=== PATIENT | male | born 1950 | race Caucasian/White ===

== ENCOUNTER 2021-07-07 07:44 | Inpatient (IN) | payer MEDICARE, MEDICAID ==
[2021-07-07] VITALS (17 sets, daily range): BP systolic 115–197; BP diastolic 56–96; PULSE 50–82; TEMP 96.8–97.6
[~2021-07-07] VITALS: Ht 185.4 cm; Wt 77.2 kg
[2021-07-07] MEDS ORDERED: TYLENOL 500MG500 MG PO (10:35)
[2021-07-07] MEDS ORDERED: NORVASC 10MG10 MG PO (10:36)
[2021-07-07] MEDS ORDERED: COREG 3.123.125 MG/T PO (10:37)
[2021-07-07] MEDS ORDERED: LIPITOR 40MG TA40 MG PO (10:37)
[2021-07-07] MEDS ORDERED: PLAVIX 75MG TAB75 MG PO (10:37)
[2021-07-07] MEDS ORDERED: PRINZIDE 12.5 M1 TAB PO (10:38)
[2021-07-07] MEDS ORDERED: RANEXA 500MG T500 MG PO (10:39)
[2021-07-07] MEDS ORDERED: NITROSTAT0.4 MG/TAB SL (10:39)
--- NOTE | 2021-07-07 11:06 | NUR ---
CRITICAL TROPONIN REPORTED TO DR. MCCLAIN, NO NEW ORDERS AT THIS TIME
[2021-07-07 11:15] LABS: BASO % 0.5 % (0.0-2.0); EOS # 0.1 K/mm3 (0.0-0.7); EOS % 2.4 % (0.0-4.0); GRAN # 3.5 K/mm3 (1.4-6.5); GRAN % 60.8 % (42.2-75.2); HEMOGLOBIN 13.7 g/dl (13.5-18.0); LYMPH # 1.6 K/mm3 (1.2-3.4); MEAN CELL VOLUME 87 fl (80.0-100.0); MEAN CORPUSCULAR HEMOGLOBIN 29 pg (27-31); MEAN CORPUSCULAR HGB CONC 33 g/dl (33.0-37.0); MEAN PLATELET VOLUME 11.4 fl (7.4-10.4); MONO # 0.5 K/mm3 (0.1-0.6); PLATELET COUNT 227 K/mm3 (130-400); RED BLOOD COUNT 4.72 M/mm3 (4.20-5.60); REDCELL DISTRIBUTION WIDTH-CV 14.6 % (11.5-14.5)
[2021-07-07 11:23] LABS: INR 1.1 (0.8-3.0); PROTHROMBIN TIME 12.7 SECONDS (9.7-12.8)
[2021-07-07 11:26] LABS: PARTIAL THROMBOPLASTIN TIME 33.2 SECONDS (26.0-37.0)
[2021-07-07 11:37] LABS: ALBUMIN 3.3 gm/dL (3.4-4.8); BILIRUBIN,TOTAL 1.5 mg/dL (0.2-1.2); CALCIUM 8.6 mg/dL (8.4-10.2); CREATININE, serum 0.76 mg/dL (0.72-1.25); MAGNESIUM 1.6 mg/dL (1.6-2.6); TOTAL PROTEIN 6.3 gm/dL (6.2-8.1)
[2021-07-07 11:45] LABS: TROPONIN-I 0.079 ng/mL (0.00-0.033)
--- NOTE | 2021-07-07 13:01 | NUR ---
PT REQUESTED TO HAVE WALLET LOCKED UP. CONTENTS OF WALLET REVIEWED WITH PT. PT VERIFIED CONTENTS AND SIGNED THE ENVELOPE WITH THE CONTENTS. PT LABELS APPLIED. DYNAMOMETER TESTER TOOK WALLET TO SAFE. PT RESTING IN ROOM. VITAL SIGNS WITHIN NORMAL RANGE AFTER RECIEVING MEDICATIONS. REMAINS NPO, EXCEPT RECIEVING ORAL MEDICATIONS. EDUCATED ON MEDICATIONS. NO CONCERNS AT THIS TIME.
--- NOTE | 2021-07-07 13:21 | NUR ---
PT GAVE PERMISSION FOR MARGARITO CUEVAS TO RECIEVE INFORMATION REGARDING THE PT'S CARE. PT REQUESTED THAT I CALL MARGARITO CUEVAS AND LET HER KNOW THAT THE PT WAS IN THE HOSPITAL AND SHARE HIS PASSWORD WITH HER. I GOT IN CONTACT WITH MARGARITO CUEVAS AND SPOKE WITH HER OVER THE PHONE. I NOTIFIED HER THAT THE PT WAS AT [facility] AND UPDATED HER WITH THE ONGOING PT CARE. NOTIFIED THE PT AFTER THE PHONE CALL TO LET HIM KNOW I WAS IN CONTACT WITH HIS FAMILY MEMBER.
--- NOTE | 2021-07-07 14:30 | NUR ---
PT TAKEN OFF UNIT FOR CARDIAC CATH PROCEDURE. PLAVIX HELD UNTIL POST PROCEDURE.
--- NOTE | 2021-07-07 15:06 | NUR ---
SEE MERGE FOR ALL MEDICATION ADMINISTRATION TIMES/DOSAGE AND INTRA/POST PROCEDURE SEDATION ASSESSMENTS.
--- NOTE | 2021-07-07 16:08 | NUR ---
ASSESSED CATH SITE AT BEDSIDE WITH TOUR DRIVER. SITE SOFT TO TOUCH. NO BRUISING OR HEMATOMA PRESENT. PT ALERT AND ORIENTED. ATTACHED TO POST-OP VITALS, VITALS STABLE. PT HAS MILD TENDERNESS AT SITE WHEN PALPATED.
--- NOTE | 2021-07-07 17:41 | NUR ---
PT RESTING FLAT IN BED. Q15 AND Q30 VITALS ARE STABLE. RIGHT FEMORAL CATHETER INSERT SITE REMAINS SOFT. NO DISCOLORATION OR SIGNS OF BLEEDING. PEDAL PULSES REMAIN 1+. MILD TENDERNESS AT THE SITE. PT EATING FINGER FOODS WHILE REMAINING FLAT. EDUCATED PT ON MEDICATIONS AND SITE CARE. EDUCATED PT TO KEEP LEG FLAT AND STRAIGHT WITH LITTLE MOVEMENT AND TO REMAIN FLAT. PT VERBALIZES UNDERSTANDING. BED IS LOW AND IN LOCKED POSITION WITH BED ALARM ON. WILL CONTINUE TO MONITOR THE SITE AND VITAL SIGNS FRQUENTLY. PT REMAINS ALERT AND ORIENTED X 4. NO CONCERNS AT THIS TIME.
--- NOTE | 2021-07-07 18:16 | NUR ---
PA NOTIFIED OF INC BP, HYDRALAZINE ORDERED I
--- NOTE | 2021-07-07 18:32 | NUR ---
ADMINISTERED PRN IV HYDRALAZINE FOR ELEVATED BLOOD PRESSURE. BP HAS CONSEQUTIVELY REMAINED IN 190/70'S. WILL RE-CHECK VITAL SIGNS.
[2021-07-08] VITALS (7 sets, daily range): BP systolic 114–166; BP diastolic 47–80; PULSE 59–85; TEMP 97.7–98.5
--- NOTE | 2021-07-08 00:51 | NUR ---
PATIENT DOING WELL TONIGHT. ALERT AND ORIENTED. R FEMORAL CATH SITE CDI, SOFT AND NO EVIDENCE OF HEMATOMA, NO BRUISING NOTED. SITE IS TENDER ON PALPATION. BP HAS BEEN ELEVATED, PRN DOSE OF HYDRALAZINE GIVEN WITH NO CHANGE AND CALL PLACED TO ABELARDO MORRELL AND ORDER FOR ANOTHER DOSE GIVEN. LAST BP CHECK 160/80. IVF INFUSING TO L AC. PATIENT USING URINAL IN BED. REPORTS SOME DIFFICULTY INITIATING STREAM. SPEECH IS GARBLED BUT THIS IS BASELINE PER SHIFT REPORT. FLAT TIME COMPLETE. NO FURTHER NEEDS AT THIS TIME.
[2021-07-08 06:36] LABS: POTASSIUM 3.8 mmol/L (3.5-4.5)
[2021-07-08 06:52] LABS: TROPONIN-I 0.104 ng/mL (0.00-0.033)
--- NOTE | 2021-07-08 07:50 | NUR ---
PT VERY DROWSY, ANSWERED ORIENTATION QUESTIONS APPROPRIATELY, PT GRIMACING WITH PALPATION OF ABD, BUT DENIES PAIN WHEN QUESTIONED, PT GROIN SITE ASSESSED, SOFT TO PALPATION, PT SAYING "OW" WITH PALPATION OF GROIN SITE, PT CATHOLIC PRIEST EQUAL, MEDICATIONS GIVEN, PT INDEPENDENT IN STANDING UP AND USING THE URINAL. NO OTHER NEEDS
--- NOTE | 2021-07-08 08:00 | NUR ---
DR. MCCLAIN NOTIFIED OF CRITICAL TROPONIN, NO NEW ORDERS
[2021-07-08] MEDS ORDERED: LIPITOR 80MG80 MG PO ×2 (10:45)
[2021-07-08] MEDS ORDERED: ASPIRIN E.C. 8181 MG PO (10:45)
[2021-07-08] MEDS ORDERED: PLAVIX 75MG TAB75 MG PO (10:49)
[2021-07-08] MEDS ORDERED: NITROSTAT0.4 MG/TAB SL (10:50)
[2021-07-08] MEDS ORDERED: RANEXA 500MG T500 MG PO (10:50)
[2021-07-08] MEDS ORDERED: COREG 3.123.125 MG/T PO (10:50)
[2021-07-08] MEDS ORDERED: NORVASC 10MG10 MG PO (10:51)
[2021-07-08] MEDS ORDERED: PRINZIDE 12.5 M1 TAB PO (10:52)
--- NOTE | 2021-07-08 11:00 | NUR ---
CONTACTED PT LISTED CONTACT ABOUT DISCHARGE, SHE STATED PT IS CURRENTLY LIVING IN HIS CAR AND DOES NOT HAVE ACCESS TO HIS MEDICATIONS OR GETTING MEDICATIONS, DR. MCCLAIN NOTIFIED AND SOCIAL WORK NOTIFIED, DC ORDERS CANCELED FOR POSSIBLE PLACEMENT.
--- NOTE | 2021-07-08 11:29 | NUR ---
Initial visit; Patient thanked Rural Carrier Associate for looking in on him and wishing him well.
--- NOTE | 2021-07-08 12:48 | NUR ---
JONO met with the pt, Dr. Deng present to complete intake and go over living situation. The pt reports living in his van in [place]. The pt next of kin is his mother in law, Chaya Toney [phone] and he gets his medications from [facility] and no PCP. Doctor Deng has recommendation for placement, pending psych eval. Following DC: placment vs home.
--- NOTE | 2021-07-08 13:27 | NUR ---
ATTEMPTED TO CALL CONSULT TO DR VARELA, SHE STATED SHE WOULD ONLY SEE THE PT IF THEY REFUSED PLACEMENT. WHEN PT ASKED ABOUT POTENTIAL PLACEMENT HE FROWNED BUT THEN SAID "YEAH". CONFIRMED AGAIN IF HE WOULD BE OPEN TO PLACEMENT IF NECESSARY FOR A SAFE ENVIRONMENT AND PT SAID "YEAH I WOULD". DR. MCCLAIN NOTIFIED, CONSULT CANCELED TO DR. VARELA AT THIS TIME.
--- NOTE | 2021-07-08 14:58 | NUR ---
Dr. Deng would like to find pt a SNF placement. to send referrals to [facility] [place]. Pt lives in [place].
--- NOTE | 2021-07-08 17:18 | NUR ---
PT PLEASANT, AOX4, DROWSY MOST OF SHIFT, PT SHOWERED TODAY, INDEPENDENT IN ROOM, FEMORAL SITE SOFT TO PAL P ATION, NO OTHER NEEDS
[2021-07-09 04:32] VITALS: BP 137/60; PULSE 56; TEMP 98
--- NOTE | 2021-07-09 04:55 | NUR ---
NO NEW ISSUES NOTED OR REPORTED BY PATIENT THIS SHIFT. PATIENT RESTED QUIETLY IN BED THROUGHOUT THE NIGHT. NO S/S OF DISTRESS
[2021-07-09 07:39] VITALS: BP 139/60; PULSE 58; TEMP 98.4
--- NOTE | 2021-07-09 08:41 | NUR ---
Pt assessment complete. Pt is drowsy upon entry, but arouses to voice. He is oriented. Breathing is even and unlabored on RA. Pt denies SOB. Currently denies any pain. No needs at this time. POC discussed with patient who verbalizes understanding. Call light within reach.
[2021-07-09 11:32] VITALS: BP 127/53; PULSE 57; TEMP 97.6
--- NOTE | 2021-07-09 12:43 | NUR ---
PT is monitoring Pt.
[2021-07-09 16:11] VITALS: BP 127/54; PULSE 59; TEMP 98.3
--- NOTE | 2021-07-09 19:14 | NUR ---
Pt slept through the day, had no complaints of pain or concerns. Resting in bed at this time. Call light within reach.
[2021-07-09 20:08] VITALS: BP 121/50; PULSE 49; TEMP 97.9
[2021-07-09 23:49] VITALS: BP 124/52; PULSE 54; TEMP 98.5
[2021-07-10 04:11] VITALS: BP 149/53; PULSE 48; TEMP 98.5
--- NOTE | 2021-07-10 06:09 | NUR ---
NO NEW ISSUES NOTED OR REPORTED BY PATIENT THROUGHOUT THE NIGHT. DENIES PAIN OR DISCOMFORT. CALL LIGHT WITHIN REACH.
[2021-07-10 06:29] LABS: BASO % 0.5 % (0.0-2.0); EOS # 0.5 K/mm3 (0.0-0.7); EOS % 7.9 % (0.0-4.0); GRAN # 2.9 K/mm3 (1.4-6.5); GRAN % 50.7 % (42.2-75.2); LYMPH # 1.6 K/mm3 (1.2-3.4); LYMPH % 28.6 % (20.0-51.0); MEAN CELL VOLUME 87 fl (80.0-100.0); MEAN CORPUSCULAR HEMOGLOBIN 29 pg (27-31); MEAN CORPUSCULAR HGB CONC 33 g/dl (33.0-37.0); MEAN PLATELET VOLUME 11.9 fl (7.4-10.4); MONO # 0.7 K/mm3 (0.1-0.6); PLATELET COUNT 212 K/mm3 (130-400); RED BLOOD COUNT 4.49 M/mm3 (4.20-5.60); REDCELL DISTRIBUTION WIDTH-CV 14.7 % (11.5-14.5)
[2021-07-10 06:47] LABS: CALCIUM 8.1 mg/dL (8.4-10.2); CREATININE, serum 1.03 mg/dL (0.72-1.25); POTASSIUM 3.4 mmol/L (3.5-4.5)
[2021-07-10 08:00] VITALS: BP 156/62; PULSE 50; TEMP 97.7
--- NOTE | 2021-07-10 09:33 | NUR ---
Scheduled medications givne. Shift assessment performed. VSS. Patient A&Ox2. Patient denies any pain, discomfort, SOA, or further needs at this time. PT working with patient. Call light in reach. Fall percautions in place.
[2021-07-10 11:10] VITALS: BP 132/55; PULSE 51; TEMP 98.7
--- NOTE | 2021-07-10 11:12 | NUR ---
hair worker met with patient to discuss discharge plan. Collaborated with patient's RN who states that the patient way stating that he did not need post acute rehab but later agreed to it. This SW asked patient if he was agreeable to go to a SNF. Patient verbalizes his agreement and states he would prefer to go somewhere in [place] as he is worried about his truck. Offered to contact the [employer] to check on it for him. Patient declines stating it is at [facility]
--- NOTE | 2021-07-10 11:30 | NUR ---
Bisi, at [facility], reports that they are not in-network with the patient's insurance: [employer].
--- NOTE | 2021-07-10 11:41 | NUR ---
SW faxed updates to [facility] and [facility]. Awaiting screens.
--- NOTE | 2021-07-10 14:31 | NUR ---
JONO followed up with Yolande about referral. Yolande reports that the team at [facility] would like a speech eval to determine if the patient is able to make his own decisions. PORSCHE Lucas contacted and Speech has been ordered.
--- NOTE | 2021-07-10 15:57 | NUR ---
Patient has had an ok day. VSS. Patient is partially oriented. Denies any pain, discomfort, SOA, or further needs at this time. Call light in reach. Fall percautions in place.
[2021-07-10 16:12] VITALS: BP 141/53; PULSE 55; TEMP 98.4
[2021-07-10 19:54] VITALS: BP 143/65; PULSE 51; TEMP 97.9
[2021-07-10 23:28] VITALS: BP 141/63; PULSE 52; TEMP 98.5
[2021-07-11 04:45] VITALS: BP 135/64; PULSE 42; TEMP 97.6
--- NOTE | 2021-07-11 06:00 | NUR ---
ASSESSMENT COMPLETE FOR THIS SHIFT. PT RESTING IN BED WATCHING TV. PT DENIED PAIN, PALPITATIONS, SOB, N,V,D OR DIZZINESS. PT'S NEURO CHECKS STABLE. PT'S HR CONTINUED TO DRIP INTO THE LOW 40'S AND RECOVER BACK TO THE 50'S, WHEN PT WAS ASLEEP, NON-SYMPTOMATIC. HOSPITALIST CALLED. ORDERED TO CONTINUE TO MONITOR. PT'S HR STARTED TO DRIP INTO THE 30'S AND RECOVER TO THE 40'S, WHILE PT WAS STILL ASLEEP, PT STILL NON-SYMPTOMATIC. HOSPITALIST CALLED. ORDERED TO CONTINUE MONITORING AND EKG ORDERED. PT EXPRESSED NO OTHER NEEDS AT THIS TIME. CALL LIGHT WITHIN REACH.
[2021-07-11 06:30] LABS: BASO % 0.4 % (0.0-2.0); EOS # 0.5 K/mm3 (0.0-0.7); EOS % 8.9 % (0.0-4.0); GRAN # 2.9 K/mm3 (1.4-6.5); GRAN % 53.7 % (42.2-75.2); HEMATOCRIT 39.6 % (42.0-52.0); HEMOGLOBIN 13.1 g/dl (13.5-18.0); LYMPH # 1.4 K/mm3 (1.2-3.4); LYMPH % 26.8 % (20.0-51.0); MEAN CELL VOLUME 89 fl (80.0-100.0); MEAN CORPUSCULAR HEMOGLOBIN 29 pg (27-31); MEAN CORPUSCULAR HGB CONC 33 g/dl (33.0-37.0); MEAN PLATELET VOLUME 11.8 fl (7.4-10.4); MONO # 0.5 K/mm3 (0.1-0.6); PLATELET COUNT 209 K/mm3 (130-400); RED BLOOD COUNT 4.46 M/mm3 (4.20-5.60); REDCELL DISTRIBUTION WIDTH-CV 14.7 % (11.5-14.5)
[2021-07-11 06:44] LABS: CALCIUM 8.3 mg/dL (8.4-10.2); CREATININE, serum 0.83 mg/dL (0.72-1.25); POTASSIUM 3.5 mmol/L (3.5-4.5)
[2021-07-11 08:14] VITALS: BP 161/59; PULSE 49; TEMP 97.7
--- NOTE | 2021-07-11 09:55 | NUR ---
Scheduled medications given. Shift assessment performed. Patient denies any pain, but states he generally does not feel well. Denies chest pain or SOB. Neuro check WNL. Patient is bradycardiac with an elevated blood pressure. All other VSS. Patient is alert, but only paritially oriented. Patient denies any further pain, discomfort, SOA, or needs at this time. Call light in reach. Fall percautions in place.
[2021-07-11 12:32] VITALS: BP 148/60; PULSE 56; TEMP 97.7
--- NOTE | 2021-07-11 13:05 | NUR ---
SW faxed ST's eval and updates to [facility] and [facility].
[2021-07-11 15:50] VITALS: BP 145/59; PULSE 53; TEMP 97.7
--- NOTE | 2021-07-11 18:29 | NUR ---
Patient has had an ok day. Patient continues to have heart rates in the 50's. PM Coreg held per parameters. All other VSS. Patient Alert, but not fully oriented. Patient denies any pain, discomfort, SOA, or further needs at this time. Call light in reach. Fall percautions in place.
[2021-07-11 19:18] VITALS: BP 148/62; PULSE 55; TEMP 97.8
--- NOTE | 2021-07-11 20:45 | NUR ---
Initial shift assessment done- alert/oriented x4, no requests, denies chest pain/SOB, Tele on; celestine at 55/min,Using call light to call for assistance to bathroom, gait jerky at times, speech slurred slightly
[2021-07-11 23:49] VITALS: BP 146/52; PULSE 60; TEMP 98.6
[2021-07-12 03:36] VITALS: BP 107/90; PULSE 43; TEMP 97.7
--- NOTE | 2021-07-12 05:39 | NUR ---
Has been sleeping well all night- no chest pain- VSS
[2021-07-12 06:46] LABS: BASO % 0.5 % (0.0-2.0); EOS # 0.6 K/mm3 (0.0-0.7); EOS % 10.9 % (0.0-4.0); GRAN # 2.7 K/mm3 (1.4-6.5); HEMATOCRIT 40.4 % (42.0-52.0); HEMOGLOBIN 13.3 g/dl (13.5-18.0); LYMPH # 1.7 K/mm3 (1.2-3.4); LYMPH % 29.8 % (20.0-51.0); MEAN CELL VOLUME 90 fl (80.0-100.0); MEAN CORPUSCULAR HEMOGLOBIN 30 pg (27-31); MEAN CORPUSCULAR HGB CONC 33 g/dl (33.0-37.0); MEAN PLATELET VOLUME 12.1 fl (7.4-10.4); MONO # 0.6 K/mm3 (0.1-0.6); MONO % 10.6 % (1.7-9.3); PLATELET COUNT 236 K/mm3 (130-400); REDCELL DISTRIBUTION WIDTH-CV 14.6 % (11.5-14.5)
[2021-07-12 06:52] LABS: CALCIUM 8.4 mg/dL (8.4-10.2); CREATININE, serum 0.92 mg/dL (0.72-1.25); POTASSIUM 3.7 mmol/L (3.5-4.5)
[2021-07-12 07:10] VITALS: BP 150/61; PULSE 47; TEMP 97.5
--- NOTE | 2021-07-12 09:19 | NUR ---
PT RESTING IN BED. MORNING MEDICATIONS GIVEN BY STUDENT RNPHIL. SHIFT ASSESSMENT COMPLETED. PT A&O X4, STATES THE YEAR IS 2001 BUT THE CORRECTS HIMSELF WITH 2021. DENIES ANY PAIN OR NEEDS. REQUESTING TO TAKE A SHOWER TODAY. WILL CONTINUE TO MONITOR.
--- NOTE | 2021-07-12 10:37 | NUR ---
0710- Assessment completed. Pt alert and resting in bed. Neuro cks WNL. HR bradycardia with an apical pulse of 44bpm. Telemetry on. INT Lt a.c. intact with no redness noted. Pt denies c/o pain.
--- NOTE | 2021-07-12 11:02 | NUR ---
Notified by Usman at [facility] that they can accept patient if he complete's a DPOA-HC form. [facility] is unable to accept patient.
[2021-07-12 11:15] VITALS: BP 127/51; PULSE 46; TEMP 97.6
[2021-07-12 16:29] VITALS: BP 147/63; PULSE 52; TEMP 97.7
[2021-07-12 20:18] VITALS: BP 131/52; PULSE 51; TEMP 97.3
--- NOTE | 2021-07-12 21:44 | NUR ---
Patient assessed around 1954. Alert and oriented, and able to make needs known. Denies having pain and discomfort. Peripheral INT to left AC. Denies SOB and dyspnea. LS CTA. Telemetry: sinus bradycardia. BSAx4. Voices no questions, needs, or concerns at this time. In bed with call light within reach. Bed alarm on.
[2021-07-12 23:19] VITALS: BP 144/60; PULSE 47; TEMP 97.3
[2021-07-13 04:50] VITALS: BP 144/46; PULSE 41; TEMP 97.4
--- NOTE | 2021-07-13 05:56 | NUR ---
Patient has denied pain and discomfort this shift. HR has been in the upper 30s-50s most of the night. Voices no questions, needs, or concerns at this time. In bed with call light within reach. Bed alarm on.
[2021-07-13 06:05] LABS: BASO # 0.1 K/mm3 (0.0-0.2); BASO % 0.9 % (0.0-2.0); EOS # 0.6 K/mm3 (0.0-0.7); EOS % 10.8 % (0.0-4.0); GRAN # 2.7 K/mm3 (1.4-6.5); GRAN % 47.7 % (42.2-75.2); HEMATOCRIT 40.5 % (42.0-52.0); HEMOGLOBIN 13.7 g/dl (13.5-18.0); LYMPH # 1.7 K/mm3 (1.2-3.4); LYMPH % 29.7 % (20.0-51.0); MEAN CELL VOLUME 88 fl (80.0-100.0); MEAN CORPUSCULAR HEMOGLOBIN 30 pg (27-31); MEAN CORPUSCULAR HGB CONC 34 g/dl (33.0-37.0); MEAN PLATELET VOLUME 11.9 fl (7.4-10.4); MONO # 0.6 K/mm3 (0.1-0.6); MONO % 10.6 % (1.7-9.3); PLATELET COUNT 236 K/mm3 (130-400); RED BLOOD COUNT 4.63 M/mm3 (4.20-5.60); REDCELL DISTRIBUTION WIDTH-CV 14.6 % (11.5-14.5)
[2021-07-13 06:20] LABS: CALCIUM 8.4 mg/dL (8.4-10.2); CREATININE, serum 0.93 mg/dL (0.72-1.25); POTASSIUM 3.9 mmol/L (3.5-4.5)
[2021-07-13 08:09] VITALS: BP 166/54; PULSE 53; TEMP 97.5
--- NOTE | 2021-07-13 09:42 | NUR ---
JONO met with patient to complete DPOA-HC form. Patient is provided education on what a DPOA-HC is and asked if he had anyone who he could appoint as his agent. Patient is able to verbalize back to me what a DPOA-HC means and that he would like his friend Christopher Toney ([phone]) as his agent. Christopher lives in [place], [place] but the patient is unsure of exact address. This JONO and ELBA Stoll witnessed patient sign form. Patient's signed copy placed in his chart and original is provided back to the patient. Clinical updates along with completed DPOA-HC faxed to Usman at [facility]. JONO Rivera notified Usman that it is not in our capacity to complete a financial DPOA-HC as requested.
--- NOTE | 2021-07-13 09:50 | NUR ---
PT RESTING IN BED. MORNING MEDICATIONS GIVEN. SHIFT ASSESSMENT COMPLETED. PT A&O X4. DENIES ANY NEEDS. UPDATED PT ON POC. WILL CONTINUE TO MONITOR.
--- NOTE | 2021-07-13 10:03 | NUR ---
JONO followed up with patient to discuss who manages his finances. Patient states that his truck is paid off and the only bill he has is his phone bill. When asked how the patient pay's for it, he states he goes to [employer] every month and buys a pre-paid phone card to refill his phone with a debit card. Patient states that he does have a bank account and that his SSI checks are deposited into it. Usman with [facility] contacted and notified of the above. Informed Usman that i just sent updates and DPOA-HC form to him and that the physcians have not rounded on the patient yet.
[2021-07-13 12:06] VITALS: BP 146/64; PULSE 44; TEMP 97.5
--- NOTE | 2021-07-13 13:46 | NUR ---
[facility] accepts patient. Clinical information faxed to [facility] to start authorization.
[2021-07-13 16:17] VITALS: BP 135/61; PULSE 47; TEMP 97.4
--- NOTE | 2021-07-13 17:10 | NUR ---
PT HAD UNEVENTFUL DAY. CONTINUES TO BE A&O X4. CONTINUING TO MONITOR.
[2021-07-13 19:27] VITALS: BP 156/73; PULSE 52; TEMP 98
--- NOTE | 2021-07-13 20:43 | NUR ---
Patient assessed around 194. Alert and oriented, and able to make needs known. Denies pain and discomfort. Telemetry showing sinus celestine. Patient refused Colace. Voices no questions, needs, or concerns at this time. In bed with call light within reach.
[2021-07-14 00:43] VITALS: BP 164/51; PULSE 55; TEMP 97.9
[2021-07-14 03:45] VITALS: BP 144/68; PULSE 73; TEMP 97.4
--- NOTE | 2021-07-14 05:05 | NUR ---
Patient has been resting in bed with call light within reach. Voices no questions, needs, or concerns at this time.
[2021-07-14 06:58] LABS: BASO # 0.1 K/mm3 (0.0-0.2); BASO % 1.1 % (0.0-2.0); EOS # 0.7 K/mm3 (0.0-0.7); EOS % 11.4 % (0.0-4.0); GRAN # 2.7 K/mm3 (1.4-6.5); GRAN % 46.9 % (42.2-75.2); HEMATOCRIT 44.4 % (42.0-52.0); HEMOGLOBIN 14.9 g/dl (13.5-18.0); LYMPH # 1.7 K/mm3 (1.2-3.4); MEAN CELL VOLUME 87 fl (80.0-100.0); MEAN CORPUSCULAR HEMOGLOBIN 29 pg (27-31); MEAN CORPUSCULAR HGB CONC 34 g/dl (33.0-37.0); MEAN PLATELET VOLUME 11.8 fl (7.4-10.4); MONO # 0.6 K/mm3 (0.1-0.6); MONO % 10.2 % (1.7-9.3); PLATELET COUNT 251 K/mm3 (130-400); RED BLOOD COUNT 5.09 M/mm3 (4.20-5.60); REDCELL DISTRIBUTION WIDTH-CV 14.5 % (11.5-14.5)
--- NOTE | 2021-07-14 07:01 | NUR ---
Patient resting in bed sleeping with the light and TV on. Call light within reach
[2021-07-14 07:16] LABS: CALCIUM 8.7 mg/dL (8.4-10.2); CREATININE, serum 0.85 mg/dL (0.72-1.25); POTASSIUM 3.8 mmol/L (3.5-4.5)
--- NOTE | 2021-07-14 07:50 | NUR ---
Telemetry notified nurse of HR in the 30's. Nurse assessed the patient, drowsy, easily arousable. Stating that he was tired and did not need anything. Student nurse notified of patients condition. Call light within reach
[2021-07-14 08:10] VITALS: BP 146/55; PULSE 46; TEMP 97.6
[2021-07-14] MEDS ORDERED: IMDUR 30MG30 MG/TAB PO (10:39)
[2021-07-14] MEDS ORDERED: ASPIRIN E.C. 8181 MG PO (10:47)
[2021-07-14] MEDS ORDERED: LIPITOR 80MG80 MG PO (10:48)
--- NOTE | 2021-07-14 11:48 | NUR ---
Agree with student nurse assessment. Patient is refusing to take a bath or have a bed bath. Call light within reach
--- NOTE | 2021-07-14 11:55 | NUR ---
Phone call received from [employer] needing the patient's updates from therapy. Peer to Peer completed at this time. Allowed to verbalize patient's therapy information from yesterday. Updates placed in their system. Still awaiting on approval.
[2021-07-14 13:33] VITALS: BP 153/60; PULSE 59; TEMP 98.1
--- NOTE | 2021-07-14 14:07 | NUR ---
Primary nurse was assisted with [phone] patient care by [facility] student Allie Campo and [facility] instructor Pam Truong MSN, RN.
[2021-07-14 15:46] VITALS: BP 138/71; PULSE 53; TEMP 98.2
--- NOTE | 2021-07-14 15:57 | NUR ---
Patient's auth was denied per [email or web address] Per Usman at [facility], patient can come under LTC and have therapy under his part B benefits. SW met with patient to discuss this option. Patient is agreeable to this plan and would like to go to [facility]. Patient expresses he has no clothing here. 3 cleen derrell shirts and a pair of pants provided to him. Patient is present with [facility]IM form. Education provided. Copy placed in patient chart, original provided to the patient. Discharge orders faxed to Usman Discharge plan: [facility]
--- NOTE | 2021-07-14 16:19 | NUR ---
Report called to [facility]. IV removed, tip intact. Patient provided with clothes. Discharge paperwork with transporter and personal belongings with the patient. No further needs expressed. Call light within reach
--- NOTE | 2021-07-14 16:50 | NUR ---
Patient taken to [facility] by wheelchair. Discharge paperwork and personal belongings with the patient
== END 2021-07-14 16:50 | DRG 246 ==
LOC: MEDICAL 07:44
PROVIDERS: Physician Assistant; Student in an Organized Health Care Education/Training Program; ADMIT Internal Medicine
PROC: 027034Z Dilation of Coronary Artery, One Artery with Drug-eluting Intraluminal Device, Percutaneous Approach (ICD-10-PCS; principal; 2021-07-08)
PROC: 4A023N7 Measurement of Cardiac Sampling and Pressure, Left Heart, Percutaneous Approach (ICD-10-PCS; 2021-07-08)
PROC: B2181ZZ Fluoroscopy of Left Internal Mammary Bypass Graft using Low Osmolar Contrast (ICD-10-PCS; 2021-07-08)
PROC: B2111ZZ Fluoroscopy of Multiple Coronary Arteries using Low Osmolar Contrast (ICD-10-PCS; 2021-07-08)
PROC: B21F1ZZ Fluoroscopy of Other Bypass Graft using Low Osmolar Contrast (ICD-10-PCS; 2021-07-08)
DX: I21.4 Non-ST elevation (NSTEMI) myocardial infarction (principal); I63.9 Cerebral infarction, unspecified; I10 Essential (primary) hypertension; I25.10 Atherosclerotic heart disease of native coronary artery without angina pectoris; I73.9 Peripheral vascular disease, unspecified; I65.21 Occlusion and stenosis of right carotid artery; I08.3 Combined rheumatic disorders of mitral, aortic and tricuspid valves; E87.6 Hypokalemia; R00.1 Bradycardia, unspecified; Z66 Do not resuscitate; E11.9 Type 2 diabetes mellitus without complications; E78.5 Hyperlipidemia, unspecified; Z95.1 Presence of aortocoronary bypass graft; Z87.891 Personal history of nicotine dependence
CPT/HCPCS: 99223-AI; 99232-AI; 99233-AI; 99239; C1725; C1760; C1769; C1874; C1887; C1894; C9604; J0360; J0583; J1644; J1650; J2250; J3010; J7030; Q9967

== ENCOUNTER 2021-09-25 17:47 | Observation (INO) | payer MEDICARE, MEDICAID ==
[~2021-09-25] VITALS: Ht 185.4 cm; Wt 79.1 kg
[~2021-09-25 17:47] MED LIST: ASPIRIN E.C. 8181 MG PO; COREG 3.123.125 MG/T PO; IMDUR 30MG30 MG/TAB PO; LIPITOR 40MG TA40 MG PO; LIPITOR 80MG80 MG PO; NITROSTAT0.4 MG/TAB SL; NORVASC 10MG10 MG PO; PLAVIX 75MG TAB75 MG PO; PRINZIDE 12.5 M1 TAB PO; RANEXA 500MG T500 MG PO; TYLENOL 500MG500 MG PO
[2021-09-25 19:20] VITALS: BP 151/65; PULSE 45; TEMP 98.2
[2021-09-25 20:44] VITALS: BP 179/62; PULSE 115; TEMP 98.5
[2021-09-25 21:34] LABS: MAGNESIUM 1.9 mg/dL (1.6-2.6)
[2021-09-25 21:44] LABS: TROPONIN-I 0.168 ng/mL (0.00-0.033)
--- NOTE | 2021-09-25 23:01 | NUR ---
Patient arrived to the unit at 720 pm by EMS. Alert and oriented x 4, HTN 150's with no chest pain, dizziness, lightheadedness. Assessment intake completed.
[2021-09-25] MEDS ORDERED: TYLENOL 500MG500 MG PO (23:33)
[2021-09-25] MEDS ORDERED: COREG 3.123.125 MG/T PO (23:38)
[2021-09-26] VITALS (7 sets, daily range): BP systolic 114–156; BP diastolic 44–64; PULSE 40–67; TEMP 97.7–98.5
--- NOTE | 2021-09-26 01:05 | NUR ---
Call received from critical care about Pt HR 36-40. Hospitalist notified, indicates will check patient. Before that he has had episodes in the lower 40's but the rest or VS are stable. EKG is ordered.
--- NOTE | 2021-09-26 01:33 | NUR ---
Patient continues with HR 35-40'S call made to T[facility]. Rest of VS provided, HTN. and WNL. Indicated it is fine and just continue monitoring.
--- NOTE | 2021-09-26 02:14 | NUR ---
Receiving critital troponin from lab 0.153. Reporte to hospitalist. Verbal order to notify if big changes occur.
[2021-09-26 06:47] LABS: BASO % 0.6 % (0.0-2.0); EOS # 0.2 K/mm3 (0.0-0.7); EOS % 4.2 % (0.0-4.0); GRAN # 2.5 K/mm3 (1.4-6.5); GRAN % 51.3 % (42.2-75.2); HEMATOCRIT 43.7 % (42.0-52.0); HEMOGLOBIN 14.9 g/dl (13.5-18.0); LYMPH # 1.6 K/mm3 (1.2-3.4); LYMPH % 33.3 % (20.0-51.0); MEAN CELL VOLUME 88 fl (80.0-100.0); MEAN CORPUSCULAR HEMOGLOBIN 30 pg (27-31); MEAN CORPUSCULAR HGB CONC 34 g/dl (33.0-37.0); MEAN PLATELET VOLUME 11.6 fl (7.4-10.4); MONO # 0.5 K/mm3 (0.1-0.6); MONO % 10.4 % (1.7-9.3); PLATELET COUNT 254 K/mm3 (130-400); RED BLOOD COUNT 4.98 M/mm3 (4.20-5.60); REDCELL DISTRIBUTION WIDTH-CV 13.9 % (11.5-14.5)
--- NOTE | 2021-09-26 06:52 | NUR ---
Patient continues with HR 35-46. No symptoms. Report given to day RN.
[2021-09-26 06:57] LABS: CALCIUM 8.5 mg/dL (8.4-10.2); CREATININE, serum 0.95 mg/dL (0.72-1.25); POTASSIUM 3.9 mmol/L (3.5-4.5)
[2021-09-26 07:18] LABS: TROPONIN-I 0.129 ng/mL (0.00-0.033)
--- NOTE | 2021-09-26 10:16 | NUR ---
Initial visit; Sandblasting Supervisor met Jose with the greeting, "What are you doing here again, Eulalio?" He laughed and talked with Sandblasting Supervisor stating he wasn't sure why but he is here to find out. Sandblasting Supervisor offered spiritual care though Eulalio denied prayer as always. Sandblasting Supervisor will check on Eulalio as always while he is hospitalized.
--- NOTE | 2021-09-26 13:03 | NUR ---
PATIENT RESTING IN BED COMFORTABLY. HR VERY SLOW AT BASELINE. PATIENT DIFFICULT TO AROUSE. IV SITE CHANGED. POTASSIUM SLOWED TO 3MEQ DO TO INTOLERANCE. NO COMPLAINTS OF PAIN. DIET ORDERED AND MEAL ORDERED FOR PATIENT.
--- NOTE | 2021-09-26 13:53 | NUR ---
Tree Worker met with patient to discuss discharge planning. Patient has been staying at a motel in [place] for about a month and reports he has no primary care physician at this time. Patient obtains his medications from [facility] in [place]. Patient uses a cane for ambulation and reports independence with ADLS. Patient has Advance Directives in EMR which designate his friend, Freda (ph#[phone]) as DPOA-HC. Patient states he is unsure what his plan is for discharge at this time, but has been to [facility] previously and would be interested in returning there. JONO contacted Usman at [facility] and faxed referral. JONO to submit for auth once PT/OT evals are completed. Discharge Plan: Referral sent to [facility] SNF, will need prior auth from Sh[facility].
--- NOTE | 2021-09-26 18:20 | NUR ---
MEDICIINE MANAGEMENT FOR HR/BP. POTASSIUM REPLACEMENT. PATIENT VERY WITHDRAWN. NO COMPLAINTS OF PAIN. PATIENT RESTING AND VERY SLEEPY IN BED FOR MOST OF DAY. TELE-IRREGULAR SB/ JUNCTIONAL. NO SIGNIFICANT EVENTS THIS SHIFT.
--- NOTE | 2021-09-26 20:00 | NUR ---
Patient is sleeping in bed, easily arousable. Denies chest pain. HR 60's. VSS. Telemetry in place. Assessment completed, meds provided. No other needs at this time. Call light within reach.
[2021-09-27] VITALS (8 sets, daily range): BP systolic 121–170; BP diastolic 54–65; PULSE 42–79; TEMP 97.7–98.4
--- NOTE | 2021-09-27 05:41 | NUR ---
Patient has been resting all night. He takes his medications. Continues bradycardic 40's, 50's and sometimes 60's. Denies chest pain or other symptoms. Report will be given to day RN.
[2021-09-27 06:34] LABS: BASO % 0.6 % (0.0-2.0); EOS # 0.2 K/mm3 (0.0-0.7); EOS % 3.4 % (0.0-4.0); GRAN # 3.3 K/mm3 (1.4-6.5); HEMATOCRIT 40.3 % (42.0-52.0); HEMOGLOBIN 13.7 g/dl (13.5-18.0); LYMPH # 1.2 K/mm3 (1.2-3.4); LYMPH % 22.2 % (20.0-51.0); MEAN CELL VOLUME 88 fl (80.0-100.0); MEAN CORPUSCULAR HEMOGLOBIN 30 pg (27-31); MEAN CORPUSCULAR HGB CONC 34 g/dl (33.0-37.0); MEAN PLATELET VOLUME 11.8 fl (7.4-10.4); MONO # 0.6 K/mm3 (0.1-0.6); MONO % 11.4 % (1.7-9.3); PLATELET COUNT 266 K/mm3 (130-400); RED BLOOD COUNT 4.57 M/mm3 (4.20-5.60); REDCELL DISTRIBUTION WIDTH-CV 13.9 % (11.5-14.5)
[2021-09-27 06:38] LABS: CALCIUM 8.6 mg/dL (8.4-10.2); CREATININE, serum 1.06 mg/dL (0.72-1.25); POTASSIUM 3.8 mmol/L (3.5-4.5)
--- NOTE | 2021-09-27 09:36 | NUR ---
Assessment completed, alert/oriented, vital sigsn stable, blood pressures improved but still celestine overnight 30's-40's HR, he denies any chest pain or discomfort, denies any dizziness or feeling lightheaded with activity or position changes, lungs CTA/ denies feely SOA or dyspnea with exertion, he report overall just feeling "fatigued and has no energy", he is tolerating PO intake, denies other needs, morning meds given, will continue to monitor
--- NOTE | 2021-09-27 10:55 | NUR ---
PT/OT evals are in. PT is recommending SNF. SW faxed the patient's records to [facility] for auth on SNF. SW faxed updates to [facility]. Awaiting auth/denial from insurance and if [facility] can accept.
--- NOTE | 2021-09-27 13:29 | NUR ---
[facility] is unabble to accept this patient.
--- NOTE | 2021-09-27 20:00 | NUR ---
Patient is resting in bed, alert and oriented x 4, denies chest pain, nausea or vomiting. Continues with HTN and bradycardia. Assessment completed, medications provided. No other needs at this time. Call light within reach.
[2021-09-28 03:27] VITALS: BP 170/63; PULSE 42; TEMP 97.7
--- NOTE | 2021-09-28 06:29 | NUR ---
Patient has had no change. HTN and bradycardia. No other issues along the night. Report will be given to day RN.
[2021-09-28 06:40] LABS: BASO % 0.8 % (0.0-2.0); EOS # 0.3 K/mm3 (0.0-0.7); EOS % 5.3 % (0.0-4.0); GRAN # 2.8 K/mm3 (1.4-6.5); GRAN % 53.7 % (42.2-75.2); HEMOGLOBIN 14.4 g/dl (13.5-18.0); LYMPH # 1.4 K/mm3 (1.2-3.4); LYMPH % 27.5 % (20.0-51.0); MEAN CELL VOLUME 90 fl (80.0-100.0); MEAN CORPUSCULAR HEMOGLOBIN 30 pg (27-31); MEAN CORPUSCULAR HGB CONC 33 g/dl (33.0-37.0); MEAN PLATELET VOLUME 12.3 fl (7.4-10.4); MONO # 0.6 K/mm3 (0.1-0.6); MONO % 12.5 % (1.7-9.3); PLATELET COUNT 199 K/mm3 (130-400); RED BLOOD COUNT 4.87 M/mm3 (4.20-5.60); REDCELL DISTRIBUTION WIDTH-CV 13.9 % (11.5-14.5)
[2021-09-28 07:05] LABS: CALCIUM 8.3 mg/dL (8.4-10.2); CREATININE, serum 0.89 mg/dL (0.72-1.25)
[2021-09-28 07:46] VITALS: BP 162/72; PULSE 60; TEMP 97.4
--- NOTE | 2021-09-28 08:30 | NUR ---
Assessment completed, alert/oriented, denies pain or discomfort, continues to be bradycardic and Cardiology has again recommended a pacemaker, patient refuses pacemaker, discussed plan of care, plans for discahrge home today with med changes
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
[2021-09-28] MEDS ORDERED: IMDUR 60MG60 MG/TAB PO (11:57)
[2021-09-28] MEDS ORDERED: THEO-24 30300 MG/CAP PO (11:59)
[2021-09-28 12:17] VITALS: BP 158/68; PULSE 53; TEMP 98.1
--- NOTE | 2021-09-28 13:52 | NUR ---
Notified by patient's Rn that we can contact [employer]. [employer] contacted and courtesy driver states that they can be here within the hour. Patient's RN notified.
--- NOTE | 2021-09-28 15:16 | NUR ---
Patient is discharging, discussed d/c instrucitons and order, instructed to follow up at [facility] as we have scheduled for him, discussed medications and scritps provided for Imdur and Theophyline, education for meds provided as well, IV and tele removed, SW has helped assist with discharge disposition and transportation, we provided cab voucher, he is ambulatory and I escorted him out the door
== END 2021-09-28 15:17 | disposition home or self-care (01) ==
LOC: MEDICAL 17:47
PROVIDERS: Physician Assistant; ADMIT Student in an Organized Health Care Education/Training Program
DX: R07.9 Chest pain, unspecified (principal); R77.8 Other specified abnormalities of plasma proteins; I25.10 Atherosclerotic heart disease of native coronary artery without angina pectoris; Z95.1 Presence of aortocoronary bypass graft; R00.1 Bradycardia, unspecified; I16.0 Hypertensive urgency; E87.6 Hypokalemia; E11.9 Type 2 diabetes mellitus without complications; E78.5 Hyperlipidemia, unspecified; I65.23 Occlusion and stenosis of bilateral carotid arteries; Z79.01 Long term (current) use of anticoagulants; Z79.899 Other long term (current) drug therapy; Z87.891 Personal history of nicotine dependence
CPT/HCPCS: 99233-AI; 99239; G0378; J1650; J3480

== ENCOUNTER 2022-03-08 09:59 | Inpatient (IN) | payer MEDICARE, MEDICAID ==
[2022-03-08] VITALS (356 sets, daily range): BP systolic 141–174; BP diastolic 58–80; PULSE 31–35; TEMP 97.5–97.7; O2SAT 91–100
[~2022-03-08] VITALS: Ht 185.4 cm; Wt 76.4 kg
[~2022-03-08 09:59] MED LIST changes: +IMDUR 60MG60 MG/TAB PO; +THEO-24 30300 MG/CAP PO
[2022-03-08 10:33] LABS: BASO % 0.8 % (0.0-2.0); EOS # 0.1 K/mm3 (0.0-0.7); EOS % 2.8 % (0.0-4.0); GRAN % 59.8 % (42.2-75.2); HEMATOCRIT 44.3 % (42.0-52.0); HEMOGLOBIN 14.9 g/dl (13.5-18.0); LYMPH # 1.4 K/mm3 (1.2-3.4); LYMPH % 28.4 % (20.0-51.0); MEAN CELL VOLUME 87 fl (80.0-100.0); MEAN CORPUSCULAR HEMOGLOBIN 29 pg (27-31); MEAN CORPUSCULAR HGB CONC 34 g/dl (33.0-37.0); MEAN PLATELET VOLUME 11.8 fl (7.4-10.4); MONO # 0.4 K/mm3 (0.1-0.6); MONO % 7.8 % (1.7-9.3); PLATELET COUNT 238 K/mm3 (130-400); RED BLOOD COUNT 5.12 M/mm3 (4.20-5.60); REDCELL DISTRIBUTION WIDTH-CV 14.5 % (11.5-14.5)
[2022-03-08 10:44] LABS: ALBUMIN 3.9 gm/dL (3.4-4.8); BILIRUBIN,TOTAL 1.9 mg/dL (0.2-1.2); CALCIUM 8.8 mg/dL (8.4-10.2); CREATININE, serum 1.21 mg/dL (0.72-1.25); POTASSIUM 3.9 mmol/L (3.5-4.5)
[2022-03-08 10:49] LABS: TROPONIN-I 0.028 ng/mL (0.00-0.033)
[2022-03-08] MEDS ORDERED: COREG 3.123.125 MG/T PO (12:43)
[2022-03-08] MEDS ORDERED: ASPIRIN E.C. 8181 MG PO (13:17)
[2022-03-08] MEDS ORDERED: PROTONIX 40MG T40 MG PO (13:19)
[2022-03-08] MEDS ORDERED: ZETIA 10MG TAB10 MG PO ×2 (13:20→16:38)
[2022-03-08] MEDS ORDERED: ADALAT CC30 MG PO (13:21)
[2022-03-08] MEDS ORDERED: IMDUR 60MG60 MG/TAB PO (13:25)
[2022-03-08] MEDS ORDERED: ZESTORETIC 12.51 TAB PO (14:32)
--- NOTE | 2022-03-08 16:04 | NUR ---
Phone call made to [facility] to see if this patient was still a resident there. Per Usman, the patient is a LTC resident at this time, and his DPOA-HC is still the same. PCP is . Patient has a DNR and copy obtained from [facility].
[2022-03-08] MEDS ORDERED: RANEXA 500MG T500 MG PO (16:34)
[2022-03-08] MEDS ORDERED: PROCARDIA XL 6060 MG PO (16:39)
--- NOTE | 2022-03-08 18:30 | NUR ---
PATIENT'S HEART RATE HAS REMAINED BRADYCARDIC IN THE 30S SINCE ARRIVING FROM THE ED; BLOOD PRESSURE HAS STEADILY INCREASED WITH THE MOST RECENT BEING 160/60. PATIENT HAS NO COMPLAINTS OF CHEST PAIN, OR PAIN ELSEWHERE IN THE BODY AT THIS TIME.
[2022-03-09] VITALS (697 sets, daily range): BP systolic 126–166; BP diastolic 61–88; PULSE 42–69; TEMP 97.5–98.4; O2SAT 81–100
[2022-03-09 06:28] LABS: CREATININE, serum 0.95 mg/dL (0.72-1.25); MAGNESIUM 1.9 mg/dL (1.6-2.6); POTASSIUM 3.7 mmol/L (3.5-4.5)
[2022-03-09 06:37] LABS: TROPONIN-I 0.103 ng/mL (0.00-0.033)
[2022-03-09 07:53] LABS: BASO % 0.5 % (0.0-2.0); EOS # 0.1 K/mm3 (0.0-0.7); EOS % 2.1 % (0.0-4.0); GRAN # 3.4 K/mm3 (1.4-6.5); GRAN % 58.9 % (42.2-75.2); HEMATOCRIT 44.4 % (42.0-52.0); LYMPH # 1.7 K/mm3 (1.2-3.4); LYMPH % 29.5 % (20.0-51.0); MEAN CELL VOLUME 87 fl (80.0-100.0); MEAN CORPUSCULAR HEMOGLOBIN 29 pg (27-31); MEAN CORPUSCULAR HGB CONC 34 g/dl (33.0-37.0); MEAN PLATELET VOLUME 12.4 fl (7.4-10.4); MONO # 0.5 K/mm3 (0.1-0.6); MONO % 8.8 % (1.7-9.3); PLATELET COUNT 228 K/mm3 (130-400); REDCELL DISTRIBUTION WIDTH-CV 14.6 % (11.5-14.5)
--- NOTE | 2022-03-09 08:15 | NUR ---
Alert and resting in bed; denies any shortness of air or other complaints at this time. Call light within reach; will continue to monitor.
--- NOTE | 2022-03-09 10:21 | NUR ---
Initial visit; Patient thanked Gettering Operator for looking in on him again. Patient was a patient awhile ago. Patient declined Spiritual Care.
--- NOTE | 2022-03-09 12:13 | NUR ---
Patient's heart rate ranging upper 30's to 40's while taking a nap this afternoon. BP remains stable and patient denies any concerns. Cardiology called to confirm that this heart rate is acceptable for patient. Instructed that this is acceptable as patient has denied offer for a pacemaker. Theophylline also discontinued this morning per hospitalist as HR was 50's to 60's. Also confirmed with cardiology that theophylline should not be resumed. Confirmed that theophylline will not be re-started.
--- NOTE | 2022-03-09 12:23 | NUR ---
SW met with patient to compete intake. Patient resides at [facility] at this time. He reports to being fully independent with his ADL's and wanting to return to the [facility]. He does not utilize any oxygen at the [facility]. PCP is and the [facility] manages his medications. Patient has a DPOA-HC established listing a friend by the name of Humza Toney ([phone]) whom is notoriously hard to get ahole of. Patient completed a DNR form at the [facility] that was obtained and placed on his chart. SW spoke with the patient about his care goals. Patient denies needing a pacemaker even through multiple physicians have told him he is at the point of needing one. Patient expresses that he wants to return to the [facility] and repeats that he would like to get a pacemaker "when i absolutely need one". He is not interested in hospice at this time.
--- NOTE | 2022-03-09 15:57 | NUR ---
Transfered upstairs via wheelchair. Alert and oriented per usual and in no distress upon transfer. Receiving RN met in patient's room on medical floor.
--- NOTE | 2022-03-09 16:08 | NUR ---
Clinical updates sent to Usman at [facility]. Notified him of anticipated discharge for Saturday 03/10.
--- NOTE | 2022-03-09 17:40 | NUR ---
PATIENT ADMITTED TO ROOM 353 VIA WHEELCHAIR FROM ICU ACCOMPANIED BY DE ALCHOLIZER. ALERT AND ORIENTED X4. DENIES PAIN. IV TO RIGHT AC INTACT. NEURO CHECKS WNL. ORIENTED TO ROOM, CALL LIGHT, AND MEAL TIMES. DENIES QUESTIONS, CONCERNS, OR NEEDS. MED REC UPDATED. CALL LIGHT WITHIN REACH.
[2022-03-10 00:03] VITALS: BP 152/72; PULSE 80; TEMP 98.2
[2022-03-10 03:29] VITALS: BP 168/52; PULSE 68; TEMP 97.8
[2022-03-10 07:23] VITALS: BP 159/77; PULSE 86; TEMP 97.4
[2022-03-10] MEDS ORDERED: IMDUR 30MG30 MG/TAB PO (08:59)
[2022-03-10] MEDS ORDERED: MAG-OX 400400 MG/TAB PO (08:59)
[2022-03-10] MEDS ORDERED: NORVASC 5MG5 MG/TAB PO (09:01)
--- NOTE | 2022-03-10 10:11 | NUR ---
SHIFT ASSESSMENT COMPLETED AND MEDICATIONS ADMINSITERED PER ORDER. PATIENT IS ALERT AND ORIENTED X4. DENIES PAIN. LUNGS CTA. AMBULATES INDEPENDENTLY. GOING BACK TO [facility] TODAY. DENIES ANY NEEDS AT THIS TIME. CALL LIGHT WITHIN REACH.
--- NOTE | 2022-03-10 11:09 | NUR ---
PATIENT DISCHARGED TO VIA [facility] TRANSPORTED BY [facility] STAFF. REPORT GIVEN TO LALA NURSE AT [facility]. DISCUSSED PATIENT ADMISSION DIAGNOSIS, PLAN OF CARE DURING STAY, PATIENT CONDITION, AND MEDICATIONS. RECEIVING NURSE DENIES QUESTIONS OR CONCERNS AT THIS TIME. IV TO RIGHT AC REMOVED WITH CATH INTACT, NO BLEEDING NOTED TO SITE, GAUZE DRESSING APPLIED. PATIENT BELONGINGS SENT WITH PATIENT. PATIENT DENIES NEEDS, QUESTIONS, OR CONCERNS AT THIS TIME.
--- NOTE | 2022-03-10 15:10 | NUR ---
SW informed that patient would be DCing on this day to [facility]. SW called facilty staff and faxed DC documentation. Patient picked up at 10:45.
== END 2022-03-10 10:55 | DRG 281 ==
LOC: COL.ER 09:59 → ICU 15:00 → MEDICAL 03-09 16:09
PROVIDERS: Internal Medicine; Physician Assistant; ADMIT Internal Medicine
DX: R00.1 Bradycardia, unspecified (principal); I21.A1 Myocardial infarction type 2; G93.40 Encephalopathy, unspecified; I25.10 Atherosclerotic heart disease of native coronary artery without angina pectoris; I10 Essential (primary) hypertension; E78.5 Hyperlipidemia, unspecified; R79.89 Other specified abnormal findings of blood chemistry; E11.51 Type 2 diabetes mellitus with diabetic peripheral angiopathy without gangrene; F03.90 Unspecified dementia, unspecified severity, without behavioral disturbance, psychotic disturbance, mood disturbance, and anxiety; I65.21 Occlusion and stenosis of right carotid artery; Z95.1 Presence of aortocoronary bypass graft; Z95.5 Presence of coronary angioplasty implant and graft; Z79.899 Other long term (current) drug therapy; Z79.82 Long term (current) use of aspirin; Z79.02 Long term (current) use of antithrombotics/antiplatelets; Z87.891 Personal history of nicotine dependence
CPT/HCPCS: J0360; J1650